=== PATIENT | female | born 1950 | race Caucasian/White ===

== ENCOUNTER 2024-05-18 19:40 | Inpatient (IN) | payer OTHER ==
[2024-05-18 19:51] VITALS: BMI 24.5
[2024-05-18] MEDS ORDERED: oxyCODONE HCL 5 MG TABLET ONE (21:36)
[2024-05-18 21:38] LABS: BASO % 0.3 % (0-2.0); HEMOGLOBIN 9.8 GM/dL (10.7-15.3); LYMPH % 11.9 % (8-40); MCH 29.1 pg (25.7-33.7); MCHC 34.9 g/dl (32.0-36.0); MEAN CELL VOLUME 83.4 fl (80-96); MEAN PLT VOLUME 8.5 fl (7.5-11.1); MONO % 6.2 % (3.8-10.2); NEUT % 81.6 % (42.8-82.8); PLATELET COUNT 562 10^3/uL (134-434); RBC 3.36 M/mm3 (3.60-5.2); RDW 13.1 % (11.6-15.6)
[2024-05-18] MEDS: oxyCODONE HCL 5 MG TABLET PO ONE (21:39)
[2024-05-18 21:45] LABS: INR 1.15 (0.83-1.09); PROTHROMBIN TIME (PATIENT) 12.7 SEC (9.7-13.0)
[2024-05-18 21:57] LABS: CHLORIDE 90 mmol/L (98-107); POTASSIUM 4.5 mmol/L (3.5-5.1); SODIUM 130 mmol/L (136-145)
[2024-05-18 21:59] LABS: CALCIUM 9.2 mg/dL (8.5-10.1)
[2024-05-18 22:00] LABS: ALBUMIN 2.9 g/dl (3.4-5.0); ANION GAP 11 mmol/L (4-13); BLOOD UREA NITROGEN 28.4 mg/dL (7-18); CO2 29 mmol/L (21-32)
[2024-05-18 22:02] LABS: GLUCOSE,RANDOM 430 mg/dL (74-106)
[2024-05-18 22:03] LABS: CREATININE 1.4 mg/dL (0.55-1.3); SGOT/AST 19 U/L (15-37); SGPT/ALT 19 U/L (13-61)
[2024-05-18 22:05] LABS: BILIRUBIN,TOTAL 0.8 mg/dL (0.2-1); TOT PROT 7.4 g/dl (6.4-8.2)
[2024-05-18 22:06] LABS: ALK PHOS 149 U/L (45-117)
[2024-05-19] MEDS ORDERED: VANCOMYCIN 1 GM PREMIX (F) 1 GM/200 ML BAG ONE (00:07)
[2024-05-19] MEDS: VANCOMYCIN 1,000 MG in DEXTROSE 5%-WATER - 250 ML IVPB ONE (00:12)
[2024-05-19] MEDS ORDERED: morphine SULFATE 4 MG/ML VIAL ONE (01:07)
[2024-05-19] MEDS: morphine CARPU-JECT 4 MG/1 ML DISP.SYRIN IVPUSH ONE (01:37)
[2024-05-19] MEDS: SODIUM CHLORIDE 0.9% 500 ML INFUS.BAG IV ONE ×2 (01:37→04:15)
[2024-05-19] MEDS: INSULIN (NOVOLOG) ASPART 100 UNITS/ML 10ML VIAL SQ ONE (04:23)
[2024-05-19] MEDS ORDERED: morphine SULFATE 4 MG/ML VIAL IVPUSH PRN (04:33)
[2024-05-19] MEDS: INSULIN ASPART SLIDING SCALE (NOVOLOG) 1 VIAL SQ SCH (07:00)
[2024-05-19] MEDS: APIXABAN 5 MG TABLET PO SCH (09:28)
[2024-05-19 09:39] LABS: BASO % 0.4 % (0-2.0); EOS % 0.5 % (0-4.5); HEMATOCRIT 30.5 % (32.4-45.2); HEMOGLOBIN 10.4 GM/dL (10.7-15.3); LYMPH % 23.5 % (8-40); MCH 28.5 pg (25.7-33.7); MCHC 34.1 g/dl (32.0-36.0); MEAN CELL VOLUME 83.5 fl (80-96); MEAN PLT VOLUME 8.4 fl (7.5-11.1); MONO % 7.6 % (3.8-10.2); PLATELET COUNT 661 10^3/uL (134-434); RBC 3.65 M/mm3 (3.60-5.2); RDW 13.4 % (11.6-15.6)
[2024-05-19 10:34] LABS: CHLORIDE 96 mmol/L (98-107); POTASSIUM 4.2 mmol/L (3.5-5.1); SODIUM 135 mmol/L (136-145)
[2024-05-19 10:38] LABS: ANION GAP 9 mmol/L (4-13); BLOOD UREA NITROGEN 21.2 mg/dL (7-18); CALCIUM 9.6 mg/dL (8.5-10.1); CO2 30 mmol/L (21-32)
[2024-05-19 10:39] LABS: GLUCOSE,RANDOM 47 mg/dL (74-106)
[2024-05-19 10:41] LABS: BILIRUBIN,DIRECT 0.2 mg/dL (0.0-0.2); SGOT/AST 19 U/L (15-37); SGPT/ALT 18 U/L (13-61)
[2024-05-19 10:43] LABS: BILIRUBIN,TOTAL 0.7 mg/dL (0.2-1); TOT PROT 7.8 g/dl (6.4-8.2)
[2024-05-19 10:44] LABS: ALK PHOS 146 U/L (45-117)
[2024-05-19 12:10] LABS: ERYTHROCYTE SEDIMENTATION RATE 105 mm/hr (0-30)
[2024-05-19] MEDS: ACETAMINOPHEN 325 MG TABLET (FP) PO PRN (18:01)
[2024-05-19] MEDS: PIPERACILLIN/TAZOB 3.375 GM 50 ML IVPB SCH (19:02)
[2024-05-20] MEDS ORDERED: VANCOMYCIN/WATER FOR INJ (PEG) 750 MG/150 ML BAG IVPB SCH
[2024-05-20] MEDS ORDERED: VANCOMYCIN 750 MG in DEXTROSE 5%-WATER - 150 ML IVPB SCH (00:01)
[2024-05-20 09:47] LABS: HEMATOCRIT 27.8 % (32.4-45.2); HEMOGLOBIN 9.5 GM/dL (10.7-15.3); MCH 28.7 pg (25.7-33.7); MEAN CELL VOLUME 84.6 fl (80-96); MEAN PLT VOLUME 8.4 fl (7.5-11.1); PLATELET COUNT 530 10^3/uL (134-434); RBC 3.29 M/mm3 (3.60-5.2); RDW 12.8 % (11.6-15.6); WHITE BLOOD COUNT 9.4 K/mm3 (4.0-10.0)
[2024-05-20 10:15] LABS: POTASSIUM 4.3 mmol/L (3.5-5.1)
[2024-05-20] MEDS: LOSARTAN POTASSIUM 50 MG TABLET PO SCH (10:18)
[2024-05-20] MEDS: HYDROCHLOROTHIAZIDE 25 MG TABLET (FP) PO SCH (10:18)
[2024-05-20] MEDS: CLOPIDOGREL BISULFATE 75 MG TABLET (FP) PO SCH (10:19)
[2024-05-20] MEDS: amLODIPine BESYLATE 10 MG TABLET (FP) PO SCH (10:19)
[2024-05-20] MEDS: PRAMIPEXOLE DIHYDROCHLORIDE 0.25 MG TABLET PO SCH (10:19)
[2024-05-20] MEDS: ATORVASTATIN CA 40 MG TABLET (FP) PO SCH (10:19)
[2024-05-20 10:27] LABS: CALCIUM 9.3 mg/dL (8.5-10.1)
[2024-05-20 10:28] LABS: BLOOD UREA NITROGEN 16.1 mg/dL (7-18)
[2024-05-20 10:31] LABS: CREATININE 1.2 mg/dL (0.55-1.3)
[2024-05-20] MEDS: traMADol HCL 50 MG TABLET PO PRN (11:56)
[2024-05-21] MEDS: IRON SUCROSE INJECTION 200 MG in SODIUM CHLORIDE 100 ML IVPB ONE (09:57)
[2024-05-22 09:39] LABS: HEMATOCRIT 28.8 % (32.4-45.2); HEMOGLOBIN 9.9 GM/dL (10.7-15.3); MCH 28.7 pg (25.7-33.7); MCHC 34.4 g/dl (32.0-36.0); MEAN CELL VOLUME 83.2 fl (80-96); MEAN PLT VOLUME 8.2 fl (7.5-11.1); PLATELET COUNT 555 10^3/uL (134-434); RBC 3.46 M/mm3 (3.60-5.2); RDW 13.4 % (11.6-15.6); WHITE BLOOD COUNT 7.2 K/mm3 (4.0-10.0)
[2024-05-22 09:52] LABS: POTASSIUM 3.8 mmol/L (3.5-5.1)
[2024-05-22 10:00] LABS: CALCIUM 9.2 mg/dL (8.5-10.1)
[2024-05-22 10:01] LABS: ALBUMIN 2.6 g/dl (3.4-5.0); BLOOD UREA NITROGEN 14.4 mg/dL (7-18)
[2024-05-22 10:03] LABS: CREATININE 1.1 mg/dL (0.55-1.3)
[2024-05-22 10:05] LABS: BILIRUBIN,TOTAL 0.8 mg/dL (0.2-1)
[2024-05-22 10:08] LABS: TOT PROT 6.9 g/dl (6.4-8.2)
[2024-05-22 15:13] VITALS: RESP 18
[2024-05-22] MEDS: MELATONIN 5 MG TABLETS PO PRN (21:47)
[2024-05-25 06:46] VITALS: BP 125/46; PULSE 70; TEMP 98.6
[2024-05-25] MEDS ORDERED: INSULIN ASPART SLIDING SCALE (NOVOLOG) 1 VIAL SQ ONE (11:40)
== END 2024-05-25 11:48 | disposition home health service (06) | DRG 300 ==
LOC: JER 19:40 → JERBED 23:38 → J8W 05-19 04:05
PROVIDERS: ADMIT Student in an Organized Health Care Education/Training Program; ATTEND Family Medicine
DX: E11.52 Type 2 diabetes mellitus with diabetic peripheral angiopathy with gangrene (principal); E44.0 Moderate protein-calorie malnutrition; L03.116 Cellulitis of left lower limb; I10 Essential (primary) hypertension; I83.90 Asymptomatic varicose veins of unspecified lower extremity; Z68.24 Body mass index [BMI] 24.0-24.9, adult
CPT/HCPCS: 36415; 73706-TC-RT; 73718-TC-LT; 80048; 80053; 82248; 82728; 82962; 83036; 83540; 83550; 84466; 85025; 85027; 85610; 85651; 85730; 86140; 87040; 93922; 93926-TC; 93971-TC; 97116-GP; 97161-GP; 99285-25; J1756; Q9967